=== PATIENT | female | born 1955 | race African-American/Black ===

== ENCOUNTER 2016-05-03 21:56 | Emergency (ER) | payer OTHER ==
[~2016-05-03 21:56] MED LIST: BENTYL20 MG PO; NEURONTIN300 MG PO; PERCOCET 5-3251 TAB PO; PHENERGAN25 M1 PO; VISTARIL PO
== END 2016-05-03 22:00 | disposition home or self-care (01) ==
LOC: CED 21:56
DX: M79.671 Pain in right foot (principal); Z88.8 Allergy status to other drugs, medicaments and biological substances
CPT/HCPCS: 82947; 99282